=== PATIENT | female | born 1980 | race Two or more races ===

== ENCOUNTER 2025-01-24 05:40 | Day surgery (SDC) | payer MEDICAID, SELFPAY ==
--- NOTE | 2025-01-21 07:00 | EKG_ITS ---
[facility] Test Date: 2025-01-21 Pat Name: YADIRA SOTO Department: Room: - Gender: Female Wirer: HAYLEY : 1980 Requested By: Willy Mota Order Number: [id number] Reading MD: Willy Mota Measurements Intervals [place] Rate: 68 P: 48 WI: 160 QRS: 55 QRSD: 78 T: 47 QT: 365 QTc: 389 Interpretive Statements SINUS RHYTHM LOW QRS VOLTAGE IN PRECORDIAL LEADS [QRS DEFLECTION < 1.0 mV IN CHEST LEADS] No previous ECG available for comparison /[id number]/S0/[id number]
[2025-01-21 08:18] VITALS: BMI 26.9
[2025-01-21 09:46] LABS: Collection Type, Urine Clean Catch
[2025-01-21 10:42] LABS: Basophils # (Auto) 0.0 Thou/mm3 (0.0-0.2); Basophils % (Auto) 1 % (0-2.5); Eosinophils # (Auto) 0.1 Thou/mm3 (0.0-0.5); Eosinophils % (Auto) 2 % (0-10); Hematocrit 43.5 % (36.0-46.0); Hemoglobin 14.6 g/dL (12.0-16.0); Immature Granulocytes Auto 0.03 Thou/mm3 (0.00-0.00); Lymphocytes # (Auto) 2.4 Thou/mm3 (1.0-4.8); Lymphocytes % (Auto) 37 % (10-50); Mean Corpuscular HGB Conc 33.6 g/dl (31.0-37.0); Mean Corpuscular Hemoglobin 30.4 pg (25.0-35.0); Mean Corpuscular Volume 90 fL (80-100); Monocytes # (Auto) 0.7 Thou/mm3 (0.0-0.8); Monocytes % (Auto) 11 % (0-12); Neutrophils # (Auto) 3.2 Thou/mm3 (1.8-7.7); Neutrophils % (Auto) 49 % (37-80); Nucleated Red Blood Cell # 0.00 Thou/mm3 (0.00-0.00); Nucleated Red Blood Cell % 0 /100 WBC (0); Platelet Count 268 Thou/mm3 (140-440); RDW Standard Deviation 42.2 fL (36.4-46.3); Red Blood Count 4.81 Miln/mm3 (4.00-5.20); White Blood Count 6.5 Thou/mm3 (3.6-11.0)
[2025-01-21 10:48] LABS: Partial Thromboplastin Time 29.0 Seconds (22.0-36.0)
[2025-01-21 10:49] LABS: Bilirubin,Urine Negative (Negative); Blood,Urine 3+ (Negative); Clarity,Urine Clear (Clear/Hazy); Color,Urine Lt-Yellow (Lt Yel-Yel); Glucose, Urine Negative (Negative); Ketones,Urine Negative (Negative); Leukocyte Esterase,Urine Positive (Negative); Nitrite,Urine Negative (Negative); PH,Urine 6.0 (5.0-7.0); Protein,Urine Negative (Neg - Trace); RBC,Urine 111 /hpf (0-3); Specific Gravity,Urine 1.016 (1.001-1.035); Squamous Epithelial Cell,Urine 1 /hpf (0-5); Urobilinogen,Urine Negative mg/dL (0.0-1.0); WBC,Urine 9 /hpf (0-5)
[2025-01-21 10:58] LABS: Alanine Aminotransferase 16 U/L (10-49); Albumin, Serum 4.5 gm/dL (3.5-5.0); Albumin/Globulin Ratio 1.6 (1.2-2.2); Alkaline Phosphatase 69 U/L (46-116); Anion Gap 9 (7-16); Aspartate Amino Transferase 22 U/L (0-34); BUN/Creatinine Ratio 15 Ratio (12-20); Bilirubin,Total 0.3 mg/dL (0.3-1.2); Blood Urea Nitrogen 9 mg/dL (9-23); Calcium 9.1 mg/dL (8.3-10.6); Calcium (Corrected) 9.1 mg/dL (8.5-10.1); Carbon Dioxide 25.7 mMol/L (20.0-31.0); Chloride 105 mMol/L (98-107); Creatinine (Component) 0.6 mg/dL (0.6-1.3); Estimated Creatinine Clearance 105.1 mL/min (>60); Globulin 2.8 gm/dL (2.3-3.5); Glucose 99 mg/dL (74-106); Osmolality,Calculated 278 (275-295); Potassium 4.1 mMol/L (3.4-5.1); Sodium 140 mMol/L (136-145); Total Protein 7.3 gm/dL (5.7-8.2); eGFR > 60 See Note
[2025-01-24] VITALS (9 sets, daily range): BP systolic 106–120; BP diastolic 66–87; PULSE 77–88; RESP 12–22; TEMP 36.1–36.8; O2SAT 96–100; BMI 26.6
[2025-01-24] MEDS: RINGERS LACTATED 1000 ML 1,000 ML 60 ML IV (06:34)
--- NOTE | 2025-01-24 07:25 | SUR.PREOP ---
Patient expressed gratitude for prayer before their procedure.
--- NOTE | 2025-01-24 09:47 | PD.SUROPNT ---
Date of Procedure 01/24/25 Pre Op Diagnosis Incarcerated ventral incisional hernia Post Op Diagnosis Incarcerated ventral hernia 8 cm in diameter Procedure Repair of incarcerated ventral hernia 8 cm in diameter and implantation of Ventrio round patch. On 01/24/2025 Findings This patient had a previous laparoscopic procedures and had an incarcerated hernia which was quite painful. Upon exploration she was found to have an incarcerated hernia within the omentum stuck in it and then the defect was 8 cm in diameter. This required lysis of adhesions and implantation of a patch. There was significant tension on the abdominal wall. Procedure Description The patient is interviewed in the preoperative area and the procedure was discussed in detail with the patient including expectation of outcomes. Explanation of the technique and complications. An informed consent was obtained. Anesthesia consent was obtained by the anesthesiologist. The hernia sites were marked on the surface. Patient is brought back to the operating room. The patient is positioned supine on the operating table and general anesthesia is administered in a satisfactory manner. The chest abdomen and thigh genitalia regions are prepped and draped in usual manner. IV antibiotics were given and a timeout procedure was carried out. Intraoperative ultrasound is carried out with 7.5 MHz linear digital ultrasound probe. The hernia defects were identified and marked on the surface to assess the extent of the procedure. Then the local anesthesia quarter percent Marcaine with epinephrine is used. Vertical incision is made around the umbilicus. Dissection is carried out in the subcutaneous tissue to the fascia and the hernia defect was identified. Gentle dissection is carried out and hernia sac is isolated. The sac is opened and was removed as specimen. There were significantly dense adhesions of the omentum within the hernia sac and surrounding subcutaneous tissue. The contents are reduced. Hemostasis is achieved. Dissection is carried out circumferentially from the peritoneal side to make sure there were no adhesions and bowel attached to the anterior abdominal wall. Lysis of adhesions is carried out on the peritoneal side releasing the omental adhesions circumferentially to about 7 cm around. All the hernias defects were incorporated into one defect. The defect is measured. It is about 8 cm in length and 5 cm in the width. There is lateral tension on the hernia defect. The laps and instrument counts are obtained they are correct x2 and then I selected a Ventrio ST round patch to be placed in the underlay position. The patch is round and measures about 11.5 cm in maximum length. The patch is secured in the preperitoneal space and attached to the fascia in circumferential manner by interrupted O' Ethibond stitches. Laps and instrument counts were correct ?2. The defect in the fascia is closed over the patch. Patch was previously irrigated with gentamicin solution. Hemostasis is achieved. Operative field is thoroughly irrigated with saline solution and the umbilicus is attached back to the fascia with 3-0 Vicryl interrupted sutures. The subcutaneous tissues approximated with 3-0 chromic interrupted suture. The skin is approximated by 4-0 Monocryl subcuticular stitches. Steri-Strips are applied. Sterile dressing and abdominal binder is applied. Patient tolerated the procedure very well complications none. Patient is transferred to recovery room in a satisfactory condition. Anesthesia GETA Drains None. Implants Ventrio ST round patch Pathology / specimen Other (Portions of hernia sac) Estimated Blood Loss 5 Condition Stable Disposition PACU Surgeon Willy Mota MD Surgical Staff Operation Date: 01/24/25 07:30 Case Staff Anesthesiologist: Jim Zamudio RN First Assistant: Nenita Bright RN cut out marker Luda is a surgical appliances salesperson with student
--- NOTE | 2025-01-24 10:00 | SUR.PHASEI ---
pt received from OR in recovery bay 5. pt obtunded, breathing unlabored on oxymask 8l, oral airway in place. v/s stable. pt dressing to abd cdi, abd binder in place. report received from Dr. Zamudio and Francia KOWALSKI.
[2025-01-24] MEDS: fentaNYL CIT INJ 50 mCg/ML AMP 2ML 25 MCG IVP ×2 (10:29→11:00)
--- NOTE | 2025-01-24 10:45 | SUR.PHASEII ---
pt able to tolerate oral fluids without difficulty swallowing or nausea/vomiting.
--- NOTE | 2025-01-24 11:10 | SUR.PHASEII ---
report given with Lola Ramírez at this time.
--- NOTE | 2025-01-24 11:15 | SUR.PHASEII ---
Received report on pt. s/p surgery from Leonidas KOWALSKI. Pt. is resting with eyes closed, VSS, dressing to umbilicus CDI, no c/o pain or nausea at this time. Pt.'s at bedside.
--- NOTE | 2025-01-24 11:48 | SUR.PHASEII ---
pt awake and alert, breathing unlabored on room air. v/s stable. pt dressing to abd cdi, abd binder in place. pt able to ambulate to wheelchair with steady gait. d/c instructions given with Raza in room using lasting machine operator bed Oliva Sanchez, all questions answered. pt d/c via wheelchair with all belongings.
== END 2025-01-24 11:48 | disposition home or self-care (01) ==
PROVIDERS: Referring Provider Specialist; Visit Provider Specialist
PROC: (CPT 49593; principal; 2025-01-24 07:30)
DX: K43.0 Incisional hernia with obstruction, without gangrene (principal); Z01.810 Encounter for preprocedural cardiovascular examination
CPT/HCPCS: 49593; 36415; 80053; 81001; 85025; 85730; 93005; A4217; A4649; C1781; J0131; J0694; J1100; J1580; J2250; J2405; J2704; J3010; J3490; J7120; A9270